=== PATIENT | male | born 1940 | race Caucasian/White ===

== ENCOUNTER 2019-09-15 13:27 | Emergency (ER) | payer MEDICARE ==
[~2019-09-15] VITALS: Ht 180.3 cm; Wt 77.1 kg
--- NOTE | 2019-09-15 13:27 | NUR ---
PT HIGINIO FROM [facility] FOR PLACEMENT. PT IS COVID POSITIVE. PT IS AAOX3, NOT IN RESPIRATORY DISTRESS, HOOKED TO [employer]. V/S STABLE. KEPT RESTED AND COMFORTABLE. WILL CONTINUE TO MONITOR.
--- NOTE | 2019-09-15 13:31 | NUR ---
PT SEEN AND EXAMINED BY .
--- NOTE | 2019-09-15 14:00 | NUR ---
FOOD TRAY PROVIDED.
--- NOTE | 2019-09-15 16:07 | NUR ---
Pt accepted to [facility] Accepting MD is Dr. Larios Number for report is [phone]
--- NOTE | 2019-09-15 16:12 | NUR ---
TRANSPORT CALLED ETA 60 MINS PER [facility].
--- NOTE | 2019-09-15 16:44 | NUR ---
REPORT GIVEN TO BECKI MARTINEZ FOR [facility].
[2019-09-15 16:58] VITALS: BP 130/60
--- NOTE | 2019-09-15 17:25 | NUR ---
REPORT GIVEN TO EMT FOR PT TRANSFER TO [facility].
== END 2019-09-15 17:34 ==
LOC: ER 13:31
DX: U07.1 COVID-19 (principal); F03.90 Unspecified dementia, unspecified severity, without behavioral disturbance, psychotic disturbance, mood disturbance, and anxiety; I10 Essential (primary) hypertension; E11.9 Type 2 diabetes mellitus without complications